=== PATIENT | female | born 1995 ===

== ENCOUNTER → 2021-07-18 09:53 | Outpatient (CLI) | payer OTHER, MEDICAID, SELFPAY ==
[2021-07-18 11:01] LABS: Add Manual Diff / Slide Review NO; Basophils Absolute Auto 0 /uL (0-100); Basophils Percent Auto 0.5 % (0-2); Eosinophils Absolute Auto 100 /uL (0-450); Hematocrit 40.5 % (36-46); Hemoglobin 13.9 g/dL (12.0-16.0); Lymphocytes Absolute Auto 1700 /uL (1100-4500); Lymphocytes Percent Auto 25.7 % (25-40); Mean Corpuscular HGB Conc 34.3 % (30-36); Mean Corpuscular Hemoglobin 29.2 PG (26-34); Monocytes Absolute Auto 600 /uL (0-900); Monocytes Percent Auto 8.8 % (3-14); Neutrophils Absolute Auto 4300 /uL (1500-7000); Platelet Count 166 X10^3/uL (150-400); Red Blood Cell Count 4.76 X10^6/uL (4.0-5.2); White Blood Cell Count 6.7 X10^3/uL (4.5-11.0)
[2021-07-18 11:49] LABS: Appearance Urine UA CLEAR; Bilirubin Urine UA NEGATIVE (NEGATIVE); Color Urine UA YELLOW; Glucose Urine UA TRACE g/dL (Negative); Ketones Urine UA NEGATIVE (NEGATIVE); Leukocyte Esterase Urine UA NEGATIVE (NEGATIVE); Nitrite Urine UA NEGATIVE (Negative); Occult Blood Urine UA TRACE-INTACT (Negative); Protein Urine UA NEGATIVE (Negative); Specific Gravity Urine UA 1.025 (1.000-1.035); Urobilinogen Urine UA 0.2 E.U./dL (0.2)
[2021-07-18 11:52] LABS: pH Urine UA 5.5 (4.5-8.0)
[2021-07-18 12:13] LABS: HCG Quantitative /Beta subunit 280690 mIU/mL
[2021-07-18 15:29] LABS: HIV 1 & 2 Ab/Ag 4th Gen Combo NEGATIVE (NEGATIVE); Hep C Virus Ab w/Reflex Quant NEGATIVE s/c (NEGATIVE); Hepatitis B Surface Antigen NEGATIVE s/c (NEGATIVE); Rubella Antibody IgG 8.5 IU/mL (>15)
[2021-07-19 07:15] LABS: Varicella IgG Antibody <135 index (Immune >165)
[2021-07-19 07:36] LABS: RPR Screen Non Reactive (Non Reactive)
[2021-07-20 11:48] LABS: Factor VIII Activity 105 % (56-140); von Willebrand Activity 106 % (50-200); von Willebrand Antigen 82 % (50-200)
[2021-07-30 10:54] LABS: PTT 29.6
== END ==
PROVIDERS: PCP Specialist; Referring Provider Obstetrics & Gynecology; Visit Provider Obstetrics & Gynecology
DX: Z34.81 Encounter for supervision of other normal pregnancy, first trimester (principal); Z3A.09 9 weeks gestation of pregnancy
CPT/HCPCS: 36415; 80055; 81003; 84702; 85240; 85246; 85730; 86787; 86803; 86850; 86900; 86901; 87086; 87389